=== PATIENT | female | born 1980 | race Caucasian/White ===

== ENCOUNTER 2016-11-29 11:44 | Emergency (ER) | payer OTHER ==
[~2016-11-29] VITALS: Ht 170.2 cm; Wt 114.3 kg
[~2016-11-29 11:44] MED LIST: *ANUSOI RE; /PANT40TA PO; ACET500C OR; ALBU17IN2 INH; ALEV220C2 PO; AZIT500T2 PO; BIRTH CONTROL PILL PO; CEFD1CAP8 PO; CELE10TA PO; CIPR500T89 PO; COLA100C2 OR; COLA50CA3 PO; GENECHW PO; IBUP600T OR; METAPKT PO; METR500T10 PO; MILKSUS OR; MULTCAP PO; NO HISTORICAL MEDS; PERCOCET PO; PRENTAB8 PO; TYLE325T5 PO; VICO5TAB16 PO; VICODIN PO
[2016-11-29] MEDS ORDERED: VYVA40CA3 PO (12:33)
[2016-11-29] MEDS ORDERED: VENL75CA47 PO (12:33)
[2016-11-29] MEDS ORDERED: ZOLP5TAB PO (12:33)
[2016-11-29] MEDS ORDERED: NS 500 ML IV ONE (13:15)
[2016-11-29] MEDS ORDERED: ASPIRIN 81 MG CHEW TABLET PO ONE (13:15)
[2016-11-29] MEDS ORDERED: MORPHINE 4 MG/ML 1ML SYRINGE IV ONE (14:00)
[2016-11-29] MEDS ORDERED: ONDANSETRON 4MG/2ML VIAL (J2405) IV ONE (14:00)
[2016-11-29 14:04] LABS: BASO % 0.1 % (0.0-1.0); EOS % 0.2 % (0.0-3.0); LARGE UNSTAINED CELL # 0.2 K/mm3 (0.0-0.4); LARGE UNSTAINED CELL % 1.3 % (0.0-4.0); LYMPH # 2.6 K/mm3 (1.5-4.5); LYMPH % 21.9 % (24.0-44.0); MEAN CORPUSCULAR HEMOGLOBIN 29.6 pg (27.0-33.0); MEAN CORPUSCULAR HGB CONC 34.4 g/dl (32.0-36.5); MONO # 0.5 K/mm3 (0.0-0.8); MONO % 4.6 % (0.0-5.0); NEUTROPHILS # 8.4 K/mm3 (1.8-7.7); NEUTROPHILS % 71.9 % (36.0-66.0); PLATELET COUNT, AUTOMATED 262 k/mm3 (150-450); RED CELL DISTRIBUTION WIDTH 13.6 % (11.5-14.5); WHITE BLOOD COUNT 11.7 K/mm3 (4.0-10.0)
[2016-11-29 14:17] LABS: INR 0.91
[2016-11-29] MEDS: IPRATROPIUM 0.5MG/ALBUTEROL 2.5MG INH SOL UD 3ML (DUONEB)(J7620) NEB PRN ×3 (14:18→15:26)
[2016-11-29 14:23] LABS: CONTROL LINE HCG INT CTR LINE PRESENT
[2016-11-29 14:32] LABS: ALBUMIN 3.3 GM/DL (3.2-5.2); ALBUMIN/GLOBULIN RATIO 0.97 (1.00-1.93); ALKALINE PHOSPHATASE 49 U/L (45-117); ALT/SGPT 19 U/L (12-78); ANION GAP 7 MEQ/L (8-16); AST/SGOT 14 U/L (15-37); BILIRUBIN,DIRECT < 0.1 MG/DL (0.0-0.2); BILIRUBIN,TOTAL 0.4 MG/DL (0.2-1.0); BLOOD UREA NITROGEN 7 MG/DL (7-18); CALCIUM LEVEL 8.2 MG/DL (8.5-10.1); CARBON DIOXIDE LEVEL 26 MEQ/L (21-32); CHLORIDE LEVEL 110 MEQ/L (98-107); CREATININE FOR GFR 0.74 MG/DL (0.55-1.02); GLOMERULAR FILTRATION RATE > 60.0 (>60); GLUCOSE, FASTING 116 MG/DL (70-105); POTASSIUM SERUM 3.5 MEQ/L (3.5-5.1); SODIUM LEVEL 143 MEQ/L (136-145); TOTAL PROTEIN 6.7 GM/DL (6.4-8.2)
[2016-11-29] MEDS ORDERED: ISOVUE-370 76% 100ML VIAL (Q9967) As Ordered ONE (14:32)
[2016-11-29 14:44] LABS: ABG BASE EXCESS 0.8 (-2.0-2.0); ABG HCO3 24.8 MEQ/L (22.0-26.0); ABG PARTIAL PRESSURE CO2 37.7 mmHg (35.0-45.0); ABG PARTIAL PRESSURE O2 84.1 mmHg (75.0-100.0); ABG STANDARD HCO3 25.2 MEQ/L (22.0-26.0); ABG pH (ARTERIAL) 7.436 UNITS (7.350-7.450)
[2016-11-29] MEDS ORDERED: ZITHTAB PO (16:40)
[2016-11-29] MEDS ORDERED: ALBU17IN2 INH (16:40)
[2016-11-29 17:01] VITALS: BP 152/86
--- NOTE | 2016-11-29 18:45 | REP ---
CT pulmonary angiogram: With IV contrast. History: Question pulmonary embolus. Comparison studies: 03/10/2016. Contrast dose: 100 mL of Isovue [address] technique: Helical scanning is acquired and overlapping 1.5 mm and contiguous 3 mm axial images are reformatted. In addition, a 3-D work station is deployed to generate thick slab maximum intensity projection images in sagittal and coronal imaging projections. CT pulmonary angiographic findings: There is good opacification of the pulmonary arterial tree. There is no CT evidence of pulmonary embolism. The thoracic aorta enhances homogeneously and is normal in course and caliber. No aneurysm or dissection is seen. There is no evidence of pleural or pericardial effusion. No hilar or mediastinal mass or adenopathy is observed. The lung beasley are clear. No infiltrate is seen. No pulmonary nodule is appreciated. Maximal intensity projection images demonstrate no evidence of filling defect or vessel cutoff to suggest pulmonary embolism. Impression: No CT evidence of pulmonary embolus. No active cardiopulmonary disease seen. Signed by Paramjit Jacobs MD 11/30/2016 09:04 A
--- NOTE | 2016-11-29 18:53 | REP ---
CT ABDOMEN AND PELVIS WITH IV CONTRAST: CT abdomen and pelvis is performed with the intravenous administration of 100 mL of Isovue-370. Sagittal and coronal reconstruction images are performed. Liver is grossly unremarkable. Patient has had a cholecystectomy. Spleen, adrenals and pancreas are unremarkable. There is no abdominal aortic aneurysm. There is no adenopathy. There is no free air or free fluid. There is no bowel wall thickening. There does appear to be a few mildly dilated small bowel loops in the left mid to upper abdomen which may represent a mild ileus. No pelvic mass is seen. The uterus and ovaries appear unremarkable. Urinary bladder is not distended and not evaluated. IMPRESSION: A few mildly dilated small bowel loops in the left abdomen may represent mild small bowel ileus. No other acute finding is identified. Signed by Mihir Reddy MD 11/30/2016 04:39 P
--- NOTE | 2016-11-30 20:04 | ECGEPIP ---
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
== END 2016-11-29 17:07 | disposition home or self-care (01) ==
LOC: M ED 13:07
DX: J40 Bronchitis, not specified as acute or chronic (principal); R09.1 Pleurisy; I51.9 Heart disease, unspecified; Z79.899 Other long term (current) drug therapy
CPT/HCPCS: 36600; 71275; 74177; 80048; 80076; 82550; 82553; 82803; 83690; 83880; 84703; 85025; 85610; 93005; 93041; 94640; 96361; 96374; 96375; 99285; J2405; Q9967

== ENCOUNTER 2017-04-12 17:51 | Emergency (ER) | payer OTHER ==
[~2017-04-12] VITALS: Ht 167.6 cm; Wt 120.7 kg
[~2017-04-12 17:51] MED LIST changes: +VENL75CA47 PO; +VYVA40CA3 PO; +ZITHTAB PO; +ZOLP5TAB PO
[2017-04-12] MEDS ORDERED: TRAM50TA2 (18:05)
[2017-04-12] MEDS ORDERED: MOBI15TA (18:05)
[2017-04-12] MEDS ORDERED: NORCO, ANEXSIA 5/325MG TABLET (HYDROcodone/ACETAMINOPHEN) PO ONE (19:00)
[2017-04-12 19:14] LABS: BASO % 0.1 % (0.0-1.0); EOS % 0.7 % (0.0-3.0); LARGE UNSTAINED CELL # 0.1 K/mm3 (0.0-0.4); LARGE UNSTAINED CELL % 1.1 % (0.0-4.0); LYMPH # 2.3 K/mm3 (1.5-4.5); LYMPH % 31.4 % (24.0-44.0); MEAN CORPUSCULAR HEMOGLOBIN 29.6 pg (27.0-33.0); MEAN CORPUSCULAR HGB CONC 34.8 g/dl (32.0-36.5); MONO # 0.4 K/mm3 (0.0-0.8); NEUTROPHILS # 4.4 K/mm3 (1.8-7.7); NEUTROPHILS % 61.7 % (36.0-66.0); PLATELET COUNT, AUTOMATED 258 k/mm3 (150-450); RED CELL DISTRIBUTION WIDTH 15.1 % (11.5-14.5); WHITE BLOOD COUNT 7.2 K/mm3 (4.0-10.0)
[2017-04-12 19:45] LABS: ERYTHROCYTE SEDIMENTATION RATE 59 mm/hr (0-20)
[2017-04-12 19:52] LABS: ALBUMIN 3.7 GM/DL (3.2-5.2); ALBUMIN/GLOBULIN RATIO 1.23 (1.00-1.93); ALKALINE PHOSPHATASE 50 U/L (45-117); ALT/SGPT 26 U/L (12-78); ANION GAP 6 MEQ/L (8-16); AST/SGOT 16 U/L (15-37); BILIRUBIN,DIRECT 0.1 MG/DL (0.0-0.2); BILIRUBIN,TOTAL 0.4 MG/DL (0.2-1.0); BLOOD UREA NITROGEN 8 MG/DL (7-18); CALCIUM LEVEL 9.3 MG/DL (8.5-10.1); CARBON DIOXIDE LEVEL 26 MEQ/L (21-32); CHLORIDE LEVEL 106 MEQ/L (98-107); CREATININE FOR GFR 0.64 MG/DL (0.55-1.02); GLOMERULAR FILTRATION RATE > 60.0 (>60); GLUCOSE, FASTING 100 MG/DL (70-105); POTASSIUM SERUM 4.1 MEQ/L (3.5-5.1); SODIUM LEVEL 138 MEQ/L (136-145); TOTAL PROTEIN 6.7 GM/DL (6.4-8.2); URIC ACID 3.9 MG/DL (2.6-6.0)
[2017-04-12] MEDS ORDERED: PRED20TA PO (21:06)
[2017-04-12] MEDS ORDERED: predniSONE 20 MG TAB As Ordered ONE (21:29)
[2017-04-12 21:41] VITALS: BP 170/90
[2017-04-12] MEDS ORDERED: predniSONE 20 MG TAB PO ONE (22:00)
[2017-04-17 10:13] LABS: Lyme Disease IgG/IgM Antibodie <0.91 ISR (0.00-0.90); Lyme Disease IgM Ab Quantitati <0.80 index (0.00-0.79)
== END 2017-04-12 21:56 | disposition home or self-care (01) ==
LOC: M ED 17:51
DX: L23.7 Allergic contact dermatitis due to plants, except food (principal); M25.50 Pain in unspecified joint; R05 Cough; R51 Headache; R42 Dizziness and giddiness; J45.909 Unspecified asthma, uncomplicated; F41.9 Anxiety disorder, unspecified; F17.210 Nicotine dependence, cigarettes, uncomplicated; Z79.899 Other long term (current) drug therapy

== ENCOUNTER 2017-06-05 18:25 | Emergency (ER) | payer OTHER ==
[~2017-06-05] VITALS: Ht 167.6 cm; Wt 119.5 kg
[~2017-06-05 18:25] MED LIST changes: +MOBI15TA; +PRED20TA PO; +TRAM50TA2
[2017-06-05] MEDS ORDERED: NS 1,000 ML IV ONE (21:15)
[2017-06-05] MEDS ORDERED: MORPHINE 4 MG/ML 1ML SYRINGE IV ONE ×2 (21:15→22:45)
[2017-06-05 21:43] LABS: ADD MORPHOLOGY? NO; BASO % 0.2 % (0.0-1.0); EOS % 0.5 % (0.0-3.0); LARGE UNSTAINED CELL # 0.1 K/mm3 (0.0-0.4); LARGE UNSTAINED CELL % 1.6 % (0.0-4.0); LYMPH % 34.3 % (24.0-44.0); MEAN CORPUSCULAR HEMOGLOBIN 30.4 pg (27.0-33.0); MEAN CORPUSCULAR HGB CONC 36.4 g/dl (32.0-36.5); MEAN CORPUSCULAR VOLUME 83.5 fl (80.0-96.0); MONO # 0.4 K/mm3 (0.0-0.8); MONO % 4.5 % (0.0-5.0); NEUTROPHILS # 5.2 K/mm3 (1.8-7.7); PLATELET COUNT, AUTOMATED 291 k/mm3 (150-450); RED CELL DISTRIBUTION WIDTH 14.6 % (11.5-14.5); WHITE BLOOD COUNT 8.8 K/mm3 (4.0-10.0)
[2017-06-05 22:00] LABS: ALBUMIN 3.6 GM/DL (3.2-5.2); ALBUMIN/GLOBULIN RATIO 1.16 (1.00-1.93); ALKALINE PHOSPHATASE 53 U/L (45-117); ALT/SGPT 25 U/L (12-78); ANION GAP 4 MEQ/L (8-16); AST/SGOT 15 U/L (15-37); BILIRUBIN,DIRECT 0.1 MG/DL (0.0-0.2); BILIRUBIN,TOTAL 0.4 MG/DL (0.2-1.0); BLOOD UREA NITROGEN 10 MG/DL (7-18); CALCIUM LEVEL 8.1 MG/DL (8.5-10.1); CARBON DIOXIDE LEVEL 31 MEQ/L (21-32); CHLORIDE LEVEL 107 MEQ/L (98-107); CREATININE FOR GFR 0.71 MG/DL (0.55-1.02); GLOMERULAR FILTRATION RATE > 60.0 (>60); GLUCOSE, FASTING 88 MG/DL (70-105); SODIUM LEVEL 142 MEQ/L (136-145); TOTAL PROTEIN 6.7 GM/DL (6.4-8.2)
[2017-06-05] MEDS ORDERED: ISOVUE-370 76% 100ML VIAL (Q9967) As Ordered ONE (22:19)
--- NOTE | 2017-06-05 23:10 | REPUSA ---
CT angiogram of the chest Clinical statement: Chest pain and shortness of breath. Technique: Multiple axial CT images were obtained from the thoracic inlet through the upper abdomen a fter a bolus administration of nonionic intravenous contrast. Coronal and sagittal reconstructions we re also obtained. Comparison: 11/29/2016. Findings: The pulmonary arteries are well-opacified with contrast, with no intraluminal filling defec ts to suggest embolism. The thoracic aorta is unremarkable. Thyroid gland is within normal limits. Th ere is no thoracic lymphadenopathy. There are no pericardial or pleural effusions. The lungs are oumar r. Limited imaging of the upper abdomen is unremarkable. There are no suspicious osseous lesions. Impression: Unremarkable CT examination of the chest. No evidence of pulmonary embolism.
[2017-06-06] MEDS ORDERED: NORCOTAB PO (00:29)
[2017-06-06 00:43] VITALS: BP 131/79
[2017-06-06] MEDS ORDERED: BACT800T5 PO (00:48)
--- NOTE | 2017-06-06 07:42 | REP ---
Clinical: Chest pain . Comparison: 03/11/2016. Technique: PA and lateral. Findings: The mediastinum and cardiac silhouette are normal. The lung beasley are clear and without acute consolidation, effusion, or pneumothorax. The skeletal structures are intact and normal. Impression: 1. No acute cardiopulmonary process. Signed by Eligio Bennett MD 06/06/2017 07:33 A
--- NOTE | 2017-06-07 07:14 | ECGEPIP ---
Stationary ECG Study 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
== END 2017-06-06 01:01 | disposition home or self-care (01) ==
LOC: M ED 18:25
DX: R09.1 Pleurisy (principal); N39.0 Urinary tract infection, site not specified; G89.29 Other chronic pain; G54.9 Nerve root and plexus disorder, unspecified; F41.9 Anxiety disorder, unspecified; F33.9 Major depressive disorder, recurrent, unspecified; F17.210 Nicotine dependence, cigarettes, uncomplicated; Z82.49 Family history of ischemic heart disease and other diseases of the circulatory system; Z79.899 Other long term (current) drug therapy; Z79.891 Long term (current) use of opiate analgesic
CPT/HCPCS: 71020; 71275; 80048; 80076; 81001; 85025; 87086; 93000; 96374; 96376; 99284; Q9967

== ENCOUNTER → 2017-06-27 | Outpatient (REF) | payer OTHER ==
[~2017-06-27] MED LIST changes: +BACT800T5 PO; +NORCOTAB PO
[2017-06-27 19:40] LABS: ALBUMIN 3.7 GM/DL (3.2-5.2); ALBUMIN/GLOBULIN RATIO 1.19 (1.00-1.93); ALKALINE PHOSPHATASE 52 U/L (45-117); ALT/SGPT 27 U/L (12-78); ANION GAP 6 MEQ/L (8-16); AST/SGOT 17 U/L (15-37); BILIRUBIN,TOTAL 0.5 MG/DL (0.2-1.0); BLOOD UREA NITROGEN 8 MG/DL (7-18); CALCIUM LEVEL 8.4 MG/DL (8.5-10.1); CARBON DIOXIDE LEVEL 28 MEQ/L (21-32); CHLORIDE LEVEL 106 MEQ/L (98-107); CREATININE FOR GFR 0.76 MG/DL (0.55-1.02); GLOMERULAR FILTRATION RATE > 60.0 (>60); GLUCOSE, FASTING 93 MG/DL (70-105); POTASSIUM SERUM 4.2 MEQ/L (3.5-5.1); SODIUM LEVEL 140 MEQ/L (136-145); T UPTAKE 32 % (30-39); THYROXINE (T4) 10.3 UG/DL (4.5-12.0); TOTAL PROTEIN 6.8 GM/DL (6.4-8.2)
[2017-06-27 19:57] LABS: THYROID PEROXIDASE ANTIBODY < 28.0 U/ML (<60.0)
== END ==
LOC: M SFHCLERA 11:21
PROVIDERS: ATTEND Physician Assistant
DX: R53.81 Other malaise (principal)

== ENCOUNTER 2017-10-19 15:45 | Emergency (ER) | payer OTHER ==
[2017-10-19 16:46] LABS: KETONE, URINE AUTO RFX NEGATIVE (NEGATIVE); LEUKOCYTE ESTERASE UR AUTO RFX NEGATIVE (NEGATIVE); MUCUS, URINE RFX SMALL (NEGATIVE); NITRITE, URINE AUTO RFX NEGATIVE (NEGATIVE); RBC, URINE AUTO RFX 2 /HPF (0-3); SPECIFIC GRAVITY UR AUTO RFX 1.015 (1.002-1.035); SQUAM EPITHELIAL CELL UR AURFX 3 /HPF (0-6); WBC, URINE AUTO RFX 1 /HPF (0-3)
[2017-10-19] MEDS: ONDANSETRON 4MG/2ML VIAL (J2405) IV (17:04)
[2017-10-19] MEDS: NS 1,000 ML IV (17:04)
[2017-10-19] MEDS: MORPHINE 4 MG/ML 1ML SYRINGE IV ×2 (17:06→18:28)
[2017-10-19 17:14] LABS: BASO % 0.2 % (0.0-1.0); HEMATOCRIT 38.6 % (36.0-47.0); HEMOGLOBIN 12.7 g/dl (12.0-16.0); IMMATURE GRANULOCYTE # 0.1 10^3/uL (0-0); IMMATURE GRANULOCYTE % 0.4 % (0-0); LYMPH # 2.5 10^3/uL (1.5-4.5); LYMPH % 21.1 % (24.0-44.0); MEAN CORPUSCULAR HEMOGLOBIN 27.5 pg (27.0-33.0); MEAN CORPUSCULAR HGB CONC 32.9 g/dl (32.0-36.5); MEAN CORPUSCULAR VOLUME 83.7 fl (80.0-96.0); MONO # 0.8 10^3/uL (0.0-0.8); MONO % 6.7 % (0.0-5.0); NEUTROPHILS # 8.4 10^3/uL (1.8-7.7); NEUTROPHILS % 71.6 % (36.0-66.0); PLATELET COUNT, AUTOMATED 265 10^3/uL (150-450); RED BLOOD COUNT 4.61 10^6/uL (4.00-5.40); RED CELL DISTRIBUTION WIDTH 14.9 % (11.5-14.5); WHITE BLOOD COUNT 11.7 10^3/uL (4.0-10.0)
[2017-10-19 17:38] LABS: CONTROL LINE HCG INT CTR LINE PRESENT; HCG, SERUM QUALITATIVE NEGATIVE (NEGATIVE)
[2017-10-19 17:48] LABS: ALBUMIN 3.6 GM/DL (3.2-5.2); ALBUMIN/GLOBULIN RATIO 1.13 (1.00-1.93); ALKALINE PHOSPHATASE 46 U/L (45-117); ALT/SGPT 32 U/L (12-78); ANION GAP 6 MEQ/L (8-16); AST/SGOT 20 U/L (7-37); BILIRUBIN,DIRECT < 0.1 MG/DL (0.0-0.2); BILIRUBIN,TOTAL 0.4 MG/DL (0.2-1.0); BLOOD UREA NITROGEN 6 MG/DL (7-18); CALCIUM LEVEL 8.5 MG/DL (8.5-10.1); CARBON DIOXIDE LEVEL 25 MEQ/L (21-32); CHLORIDE LEVEL 110 MEQ/L (98-107); CREATININE FOR GFR 0.63 MG/DL (0.55-1.02); GLOMERULAR FILTRATION RATE > 60.0 (>60); GLUCOSE, FASTING 83 MG/DL (70-100); LIPASE 126 U/L (73-393); POTASSIUM SERUM 4.1 MEQ/L (3.5-5.1); SODIUM LEVEL 141 MEQ/L (136-145); TOTAL PROTEIN 6.8 GM/DL (6.4-8.2)
[2017-10-19] MEDS ORDERED: ISOVUE-370 76% 100ML VIAL (Q9967) As Ordered (17:56)
[2017-10-19 19:07] LABS: CHLAMYDIA DNA AMPLIFICATION NEGATIVE (NEGATIVE); GC DNA AMPLIFICATION NEGATIVE (NEGATIVE)
[2017-10-19] MEDS: NORCO, ANEXSIA 5/325MG TABLET (HYDROcodone/ACETAMINOPHEN) PO (19:30)
== END 2017-10-19 19:35 | disposition home or self-care (01) ==
LOC: M ED 15:45
DX: R10.9 Unspecified abdominal pain (principal); Z79.899 Other long term (current) drug therapy; Z98.890 Other specified postprocedural states
CPT/HCPCS: J2405

== ENCOUNTER → 2017-11-20 | Outpatient (CLI) | payer OTHER | LOC: M CARPUL 09:33 | DX: R07.89 Other chest pain (principal) ==

== ENCOUNTER 2018-07-02 17:25 | Emergency (ER) | payer OTHER ==
[2018-07-02 15:32] LABS: BASO % 0.1 % (0.0-1.0); HEMATOCRIT 37.3 % (36.0-47.0); HEMOGLOBIN 12.4 g/dl (12.0-15.5); IMMATURE GRANULOCYTE % 0.4 % (0-3.0); LYMPH # 2.6 10^3/uL (1.5-4.5); LYMPH % 39.3 % (24.0-44.0); MEAN CORPUSCULAR HEMOGLOBIN 28.4 pg (27.0-33.0); MEAN CORPUSCULAR HGB CONC 33.2 g/dl (32.0-36.5); MEAN CORPUSCULAR VOLUME 85.4 fl (80.0-96.0); MONO # 0.5 10^3/uL (0.0-0.8); MONO % 7.3 % (0.0-5.0); NEUTROPHILS # 3.5 10^3/uL (1.8-7.7); NEUTROPHILS % 52.9 % (36.0-66.0); PLATELET COUNT, AUTOMATED 239 10^3/uL (150-450); RED BLOOD COUNT 4.37 10^6/uL (4.00-5.40); RED CELL DISTRIBUTION WIDTH 14.2 % (11.5-14.5); WHITE BLOOD COUNT 6.7 10^3/uL (4.0-10.0)
[2018-07-02 15:50] LABS: CONTROL LINE HCG INT CTR LINE PRESENT; HCG, SERUM QUALITATIVE NEGATIVE (NEGATIVE)
[2018-07-02 16:12] LABS: ALBUMIN 3.4 GM/DL (3.2-5.2); ALBUMIN/GLOBULIN RATIO 1.13 (1.00-1.93); ALKALINE PHOSPHATASE 43 U/L (45-117); ALT/SGPT 23 U/L (12-78); ANION GAP 5 MEQ/L (8-16); AST/SGOT 20 U/L (7-37); BILIRUBIN,DIRECT < 0.1 MG/DL (0.0-0.2); BILIRUBIN,TOTAL 0.3 MG/DL (0.2-1.0); BLOOD UREA NITROGEN 9 MG/DL (7-18); CALCIUM LEVEL 8.5 MG/DL (8.5-10.1); CARBON DIOXIDE LEVEL 27 MEQ/L (21-32); CHLORIDE LEVEL 110 MEQ/L (98-107); CPK CREATINE PHOSPHOKINASE 276 U/L (26-192); CREATININE FOR GFR 0.74 MG/DL (0.55-1.30); FREE T4 0.94 NG/DL (0.76-1.46); GLOMERULAR FILTRATION RATE > 60.0 (>60); GLUCOSE, FASTING 83 MG/DL (70-100); MB/CK RELATIVE INDEX 1.01 (< OR =4); POTASSIUM SERUM 4.6 MEQ/L (3.5-5.1); SODIUM LEVEL 142 MEQ/L (136-145); TOTAL PROTEIN 6.4 GM/DL (6.4-8.2); TROPONIN I < 0.02 NG/ML (< 0.10)
[2018-07-02] MEDS ORDERED: ISOVUE-370 76% 100ML VIAL (Q9967) As Ordered (17:37)
[2018-07-02] MEDS: MORPHINE 4 MG/ML 1ML VIAL/SYRINGE (J2270) IV (17:46)
[2018-07-02] MEDS: ALPRAZolam 0.5 MG TAB PO (20:17)
[2018-07-02 20:45] LABS: CPK CREATINE PHOSPHOKINASE 220 U/L (26-192); MB/CK RELATIVE INDEX 1.18 (< OR =4); TROPONIN I < 0.02 NG/ML (< 0.10)
== END 2018-07-02 21:42 | disposition home or self-care (01) ==
LOC: M ED 17:25
DX: M79.652 Pain in left thigh (principal); F41.1 Generalized anxiety disorder; R55 Syncope and collapse; M79.7 Fibromyalgia; F32.9 Major depressive disorder, single episode, unspecified; F41.9 Anxiety disorder, unspecified; Z72.0 Tobacco use; Z79.899 Other long term (current) drug therapy
CPT/HCPCS: J2270

== ENCOUNTER → 2018-12-06 | Outpatient (CLI) | payer OTHER ==
[~2018-12-06] MED LIST changes: +AMPHET/DEXTR; +BACL10TA2; +CYMB60CA3 PO; +LISI10TA4; +VENL150C43; +VENTAER
--- NOTE | 2018-12-06 11:40 | REP ---
MR CERVICAL SPINE WITHOUT CONTRAST: HISTORY: Radiculopathy. COMPARISON: 06/02/2011 A small right paracentral disc protrusion is present at the C4-5 level. There is minimal effacement of the thecal sac without spinal cord compression. The C4 neural foramen are patent. A disc bulge and small left paracentral disc protrusion are present at the C5-6 level. There is mild effacement of the thecal sac without spinal cord compression. The C5 neural foramina are patent. There is no other disc bulge or herniation. The remaining neural foramina are patent. The spinal cord is normal in signal intensity. The C5-6 intervertebral disc is decreased in height consistent with disc degeneration. Normal signal intensity is present in the cervical vertebral bodies. There is slight loss of the normal lordotic curve. IMPRESSION: There is cervical spondylosis at the C4-5 and C5-6 levels without spinal cord compression. The disc protrusions at the C4-5 and C5-6 levels are new. Electronically Signed by Alex Martínez MD 12/06/2018 11:51 A
== END ==
LOC: M PLARAD 09:49
PROVIDERS: ATTEND Pain Medicine Interventional Pain Medicine
DX: M47.892 Other spondylosis, cervical region (principal); M50.221 Other cervical disc displacement at C4-C5 level; M50.222 Other cervical disc displacement at C5-C6 level

== ENCOUNTER 2018-12-17 14:02 | Emergency (ER) | payer OTHER ==
[~2018-12-17] VITALS: Ht 170.2 cm; Wt 119.7 kg
[~2018-12-17 14:02] MED LIST changes: -/PANT40TA PO; +HYDR-3715 PO; +KONS100P4 PO; -METAPKT PO; -NORCOTAB PO; +OXYC1TAB23 PO; -PERCOCET PO; +PROT1TAB2 PO; -VICO5TAB16 PO; +VICO5TAB17 PO
[2018-12-17] MEDS ORDERED: VYVA60CA (14:13)
[2018-12-17] MEDS ORDERED: TRAZ-160 (14:13)
[2018-12-17] MEDS ORDERED: THYROID SUPPORT (14:13)
[2018-12-17] MEDS ORDERED: TRI IODINE (14:13)
[2018-12-17] MEDS ORDERED: NS 1,000 ML IV ONE (15:30)
[2018-12-17] MEDS ORDERED: KETOROLAC 30 MG/ML VIAL (J1885) IV ONE (15:30)
[2018-12-17 16:08] LABS: HEMATOCRIT 37.3 % (36.0-47.0); HEMOGLOBIN 12.6 g/dl (12.0-15.5); LYMPH # 2.2 10^3/uL (1.5-4.5); LYMPH % 24.9 % (24.0-44.0); MEAN CORPUSCULAR HGB CONC 33.8 g/dl (32.0-36.5); MEAN CORPUSCULAR VOLUME 88.8 fl (80.0-96.0); MONO # 0.7 10^3/uL (0.0-0.8); MONO % 7.6 % (0.0-5.0); NEUTROPHILS % 67.3 % (36.0-66.0); PLATELET COUNT, AUTOMATED 220 10^3/uL (150-450); WHITE BLOOD COUNT 8.9 10^3/uL (4.0-10.0)
[2018-12-17 16:19] LABS: URINE PREG TEST NEGATIVE (NEGATIVE)
[2018-12-17 16:30] LABS: ALBUMIN 3.5 GM/DL (3.2-5.2); ALT/SGPT 22 U/L (12-78); AMYLASE 24 U/L (25-115); BILIRUBIN,DIRECT < 0.1 MG/DL (0.0-0.2); BILIRUBIN,TOTAL 0.4 MG/DL (0.2-1.0); BLOOD UREA NITROGEN 8 MG/DL (7-18); CALCIUM LEVEL 8.5 MG/DL (8.5-10.1); CARBON DIOXIDE LEVEL 27 MEQ/L (21-32); CHLORIDE LEVEL 108 MEQ/L (98-107); CREATININE FOR GFR 0.69 MG/DL (0.55-1.30); GLOMERULAR FILTRATION RATE > 60.0 (>60); GLUCOSE, FASTING 61 MG/DL (70-100); LIPASE 94 U/L (73-393); POTASSIUM SERUM 3.8 MEQ/L (3.5-5.1); SODIUM LEVEL 141 MEQ/L (136-145); TOTAL PROTEIN 6.2 GM/DL (6.4-8.2)
[2018-12-17] MEDS: GASTROGRAFIN SOLUTION 30ML PO SCH ×2 (16:35→17:05)
[2018-12-17] MEDS ORDERED: ISOVUE-370 76% 125ML VIAL (Q9967 PER ML) As Ordered ONE (17:31)
[2018-12-17] MEDS ORDERED: KETO10TAB PO (18:05)
--- NOTE | 2018-12-17 18:08 | REP ---
Clinical: Abdominal pain. Technique: Axial contrast enhanced images from the lung bases to the pubic symphysis using oral (per protocol) and 100 ml Isovue 370 intravenous contrast material with coronal and sagittal re-formations. Comparison: 10/19/2017. Findings: Lung bases are clear. Visualized heart and pericardium are normal. Liver, spleen, pancreas, bilateral adrenal glands and kidneys are normal. Evidence of prior cholecystectomy noted. The enteric system is without obstruction or acute inflammatory process. Normal terminal ileum and appendix are identified in the right lower quadrant. Pelvis demonstrates normal bladder and age-appropriate uterus/adnexa. Evidence for prior ventral hernia repair along the anterior pelvic wall. No ascites. No free air. No adenopathy. Abdominal aorta without aneurysm or dissection. Osseous structures are intact. Impression: No acute abdominopelvic pathology appreciated. No ascites, focal inflammatory stranding, or adenopathy. Electronically Signed by Eligio Bennett MD 12/17/2018 06:00 P
[2018-12-17 18:23] VITALS: BP 145/87
== END 2018-12-17 18:24 | disposition home or self-care (01) ==
LOC: M ED 14:02
DX: R10.32 Left lower quadrant pain (principal); F17.210 Nicotine dependence, cigarettes, uncomplicated; Z87.19 Personal history of other diseases of the digestive system; Z79.899 Other long term (current) drug therapy
CPT/HCPCS: 74177; 80048; 80076; 81001; 82150; 83690; 84703; 85025; 87086; 96374; 99284; J1885; Q9963; Q9967

== ENCOUNTER 2019-10-15 20:41 | Emergency (ER) | payer OTHER ==
[~2019-10-15] VITALS: Ht 165.1 cm; Wt 117.3 kg
[~2019-10-15 20:41] MED LIST changes: -AZIT500T2 PO; +AZIT500T5 PO; +KETO10TAB PO; +THYROID SUPPORT; +TRAZ-252; +TRI IODINE; +VYVA60CA
[2019-10-15] MEDS ORDERED: VENL75CA47 (20:53)
[2019-10-15] MEDS ORDERED: CHAN1PAK13 (20:53)
[2019-10-15] MEDS ORDERED: CELE1CAP9 (20:53)
[2019-10-15] MEDS ORDERED: PREVTAB2 (20:53)
[2019-10-15] MEDS ORDERED: SUMA50TA2 (20:53)
[2019-10-16] VITALS: BP 138/80
--- NOTE | 2019-10-16 00:52 | REP ---
Clinical: Left knee trauma. Technique: AP, lateral, bilateral oblique and sunrise views of the left knee. Findings: Mild generalized age-related changes are appreciated. No acute fracture or dislocation. No definite effusion. Impression: Age-related changes. No obvious acute fracture or dislocation. Electronically Signed by Eligio Bennett MD 10/16/2019 12:43 A
== END 2019-10-16 00:04 | disposition home or self-care (01) ==
LOC: M ED 20:41
DX: S89.92XA Unspecified injury of left lower leg, initial encounter (principal); M25.562 Pain in left knee; W01.0XXA Fall on same level from slipping, tripping and stumbling without subsequent striking against object, initial encounter; Y92.89 Other specified places as the place of occurrence of the external cause; Y99.0 Civilian activity done for income or pay; M54.5 Low back pain; Z87.19 Personal history of other diseases of the digestive system; Z79.899 Other long term (current) drug therapy

== ENCOUNTER 2019-11-09 12:20 | Emergency (ER) | payer OTHER ==
[~2019-11-09] VITALS: Ht 167.6 cm; Wt 116.4 kg
[~2019-11-09 12:20] MED LIST changes: +CELE1CAP9; +CHAN1PAK13; +PREVTAB2; +SUMA50TA2; +VENL75CA47
[2019-11-09] MEDS ORDERED: diphenhydrAMINE INJ 50MG/ML VIAL (J1200) IV STA (13:32)
[2019-11-09] MEDS ORDERED: NS 1,000 ML IV ONE (13:45)
[2019-11-09] MEDS ORDERED: METOCLOPRAMIDE INJ 10MG/2ML VIAL (J2765) IV ONE (13:45)
[2019-11-09] MEDS ORDERED: KETOROLAC 30 MG/ML VIAL (J1885) IV ONE (13:45)
[2019-11-09 13:49] LABS: BASO % 0.1 % (0.0-1.0); HEMATOCRIT 43.9 % (36.0-47.0); HEMOGLOBIN 15.2 g/dl (12.0-15.5); LYMPH # 2.8 10^3/uL (1.5-5.0); LYMPH % 29.8 % (24.0-44.0); MEAN CORPUSCULAR HEMOGLOBIN 30.2 pg (27.0-33.0); MEAN CORPUSCULAR HGB CONC 34.6 g/dl (32.0-36.5); MEAN CORPUSCULAR VOLUME 87.3 fl (80.0-96.0); MONO # 0.8 10^3/uL (0.0-0.8); NEUTROPHILS # 5.9 10^3/uL (1.5-8.5); NEUTROPHILS % 61.9 % (36.0-66.0); PLATELET COUNT, AUTOMATED 280 10^3/uL (150-450); RED BLOOD COUNT 5.03 10^6/uL (4.00-5.40); WHITE BLOOD COUNT 9.5 10^3/uL (4.0-10.0)
--- NOTE | 2019-11-09 14:14 | REP ---
Clinical: severe headaches and altered mental status. Comparison: None . Findings: The ventricles, sulci, and cisterns are normal in position and appearance. Reddy-white differentiation is maintained. No acute intracranial hemorrhage, mass/mass effect, pathology or trauma/injury. No evidence for acute infarction. No extra-axial fluid collection. Calvarium is intact. Paranasal sinuses and mastoid air cells are clear. Impression: Normal noncontrast head CT. No evidence for acute intracranial pathology or trauma/injury. Electronically Signed by Eligio Bennett MD 11/09/2019 02:06 P
[2019-11-09 14:27] LABS: ALBUMIN 3.7 GM/DL (3.2-5.2); ALT/SGPT 21 U/L (12-78); BILIRUBIN,DIRECT 0.1 MG/DL (0.0-0.2); BILIRUBIN,TOTAL 0.4 MG/DL (0.2-1.0); BLOOD UREA NITROGEN 12 MG/DL (7-18); CALCIUM LEVEL 8.7 MG/DL (8.5-10.1); CARBON DIOXIDE LEVEL 26 MEQ/L (21-32); CHLORIDE LEVEL 108 MEQ/L (98-107); CREATININE FOR GFR 0.67 MG/DL (0.55-1.30); GLOMERULAR FILTRATION RATE > 60.0 (>60); GLUCOSE, FASTING 74 MG/DL (70-100); MAGNESIUM LEVEL 2.1 MG/DL (1.8-2.4); POTASSIUM SERUM 4.3 MEQ/L (3.5-5.1); SODIUM LEVEL 140 MEQ/L (136-145); TOTAL PROTEIN 6.8 GM/DL (6.4-8.2)
[2019-11-09 15:31] VITALS: BP 129/81
== END 2019-11-09 15:46 | disposition home or self-care (01) ==
LOC: M ED 12:20
DX: R51 Headache (principal); R53.83 Other fatigue; G93.5 Compression of brain; M25.50 Pain in unspecified joint; I10 Essential (primary) hypertension; G89.29 Other chronic pain; M54.5 Low back pain; F41.9 Anxiety disorder, unspecified; F17.210 Nicotine dependence, cigarettes, uncomplicated; Z79.899 Other long term (current) drug therapy
CPT/HCPCS: 70450; 80048; 80076; 83735; 84443; 85025; 96361; 96374; 96375; 99284; J1200; J1885; J2765

== ENCOUNTER → 2020-07-22 | Outpatient (CLI) | payer SELFPAY | LOC: EEVIPCON 14:11 → M LABSMTC 14:11 | PROVIDERS: ATTEND Pediatrics | DX: Z11.59 Encounter for screening for other viral diseases (principal); Z20.828 Contact with and (suspected) exposure to other viral communicable diseases ==

== ENCOUNTER → 2021-01-11 | Outpatient (CLI) | payer OTHER ==
[~2021-01-11] MED LIST changes: +LISI10TA22; -LISI10TA4
--- NOTE | 2021-01-11 20:43 | ECGEPIP ---
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
== END ==
LOC: M EKG 17:07
PROVIDERS: ATTEND Orthopaedic Surgery
DX: Z01.818 Encounter for other preprocedural examination (principal)

== ENCOUNTER 2021-02-10 18:46 | Emergency (ER) | payer OTHER ==
[~2021-02-10] VITALS: Ht 160 cm; Wt 119.4 kg
[2021-02-10 18:58] VITALS: BP 160/84
== END 2021-02-10 21:25 | disposition left against medical advice (07) ==
LOC: M ED 18:46
DX: Z53.21 Procedure and treatment not carried out due to patient leaving prior to being seen by health care provider (principal)

== ENCOUNTER 2021-03-28 06:00 | Emergency (ER) | payer OTHER ==
[~2021-03-28] VITALS: Ht 170.2 cm; Wt 120.0 kg
[2021-03-28 06:01] VITALS: BP 135/77
[2021-03-28] MEDS ORDERED: TOPA100T12 PO (06:06)
[2021-03-28] MEDS ORDERED: IBUP1TAB6 PO (06:07)
[2021-03-28] MEDS ORDERED: AUGM875T28 PO (07:19)
[2021-03-28] MEDS ORDERED: AUGMENTIN 875 MG TAB PO ONE (07:20)
== END 2021-03-28 07:44 | disposition home or self-care (01) ==
LOC: M ED 06:00
DX: K02.9 Dental caries, unspecified (principal); K04.7 Periapical abscess without sinus; I10 Essential (primary) hypertension; F17.200 Nicotine dependence, unspecified, uncomplicated; F41.9 Anxiety disorder, unspecified; F33.9 Major depressive disorder, recurrent, unspecified; Z79.899 Other long term (current) drug therapy

== ENCOUNTER 2022-08-03 22:59 | Emergency (ER) | payer OTHER ==
[~2022-08-03] VITALS: Ht 170.2 cm; Wt 111.5 kg
[~2022-08-03 22:59] MED LIST changes: +AUGM875T28 PO; -CEFD1CAP8 PO; +CEFD300C41 PO; -CYMB60CA3 PO; +CYMB60CA4 PO; +IBUP1TAB6 PO; +TOPA100T12 PO
[2022-08-04 01:57] VITALS: BP 125/93
[2022-08-04 03:07] LABS: BASO % 0.3 % (0.0-1.0); HEMATOCRIT 37.4 % (36.0-47.0); LYMPH # 3.5 10^3/uL (1.5-5.0); LYMPH % 39.5 % (24.0-44.0); MEAN CORPUSCULAR HGB CONC 34.8 g/dl (32.0-36.5); MEAN CORPUSCULAR VOLUME 89.3 fl (80.0-96.0); MONO # 0.7 10^3/uL (0.0-0.8); MONO % 7.3 % (2.0-8.0); NEUTROPHILS # 4.6 10^3/uL (1.5-8.5); NEUTROPHILS % 52.6 % (36.0-66.0); PLATELET COUNT, AUTOMATED 265 10^3/uL (150-450); RED BLOOD COUNT 4.19 10^6/uL (4.00-5.40); WHITE BLOOD COUNT 8.9 10^3/uL (4.0-10.0)
[2022-08-04] MEDS ORDERED: ISOVUE-370 76% 100ML VIAL As Ordered ONE (03:35)
[2022-08-04 03:44] LABS: ALBUMIN 3.5 GM/DL (3.2-5.2); ALT/SGPT 25 U/L (12-78); BILIRUBIN,DIRECT 0.1 MG/DL (0.0-0.2); BILIRUBIN,TOTAL 0.6 MG/DL (0.2-1.0); BLOOD UREA NITROGEN 14 MG/DL (7-18); CALCIUM LEVEL 8.8 MG/DL (8.5-10.1); CARBON DIOXIDE LEVEL 28 MEQ/L (21-32); CHLORIDE LEVEL 107 MEQ/L (98-107); CREATININE FOR GFR 0.72 MG/DL (0.55-1.30); GLOMERULAR FILTRATION RATE > 60.0 (>58); GLUCOSE, FASTING 98 MG/DL (70-100); LIPASE 118 U/L (73-393); POTASSIUM SERUM 3.7 MEQ/L (3.5-5.1); SODIUM LEVEL 139 MEQ/L (136-145); TOTAL PROTEIN 6.5 GM/DL (6.4-8.2)
[2022-08-04] MEDS ORDERED: KETOROLAC 30 MG/ML 1ML VIAL IV ONE (04:15)
== END 2022-08-04 06:23 | disposition home or self-care (01) ==
LOC: M ED 22:59
DX: N83.201 Unspecified ovarian cyst, right side (principal); R11.2 Nausea with vomiting, unspecified; R19.7 Diarrhea, unspecified; G43.909 Migraine, unspecified, not intractable, without status migrainosus; K92.9 Disease of digestive system, unspecified; F17.210 Nicotine dependence, cigarettes, uncomplicated; Z79.899 Other long term (current) drug therapy
CPT/HCPCS: 74177; 80048; 80076; 81000; 81002; 81015; 83690; 84702; 85025; 93041; 96374; 99284; J1885

== ENCOUNTER 2023-05-10 15:06 | Emergency (ER) | payer OTHER ==
[~2023-05-10] VITALS: Ht 170.2 cm; Wt 112.7 kg
[2023-05-10 18:57] VITALS: BP 132/82; TEMP 98.5; O2SAT 100
== END 2023-05-10 18:57 | disposition home or self-care (01) ==
LOC: M ED 15:06
DX: M72.2 Plantar fascial fibromatosis (principal); I10 Essential (primary) hypertension; F41.9 Anxiety disorder, unspecified; F32.A Depression, unspecified; Z79.899 Other long term (current) drug therapy; F17.200 Nicotine dependence, unspecified, uncomplicated

== ENCOUNTER → 2023-08-27 | Outpatient (REF) ==
[~2023-08-27] MED LIST changes: -CEFD300C41 PO; +CEFD300C42 PO; +CELE0.09; -CELE1CAP9
== END ==
LOC: M EMP 12:56
PROVIDERS: ATTEND Family Medicine
DX: Z11.52 Encounter for screening for COVID-19 (principal)

== ENCOUNTER → 2023-10-22 | Outpatient (REF) ==
[~2023-10-22] MED LIST changes: +CEFD1CAP9 PO; -CEFD300C42 PO
== END ==
LOC: M EMP 13:15
PROVIDERS: ATTEND Family Medicine
DX: Z53.9 Procedure and treatment not carried out, unspecified reason (principal)